=== PATIENT | male | born 1980 | race Caucasian/White ===

== ENCOUNTER → 2020-10-05 | Outpatient (CLI) | payer OTHER ==
[~2020-10-05] MED LIST: CONTRAST GIVEN. MC PRN; IOHEXOL 350 MG/ML 100 ML VIAL. IV ONE
--- NOTE | 2020-10-05 15:57 | RAD ---
EXAM: CT ANGIOGRAPHY OF THE CHEST WITH AND WITHOUT CONTRAST. HISTORY: Elevated d-dimer. TECHNIQUE: Computed tomographic angiography of the chest was performed before and after the intraveno us administration of iodinated contrast. 3-D maximum intensity projections were also performed. One o r more of the following individualized dose reduction techniques were utilized for this examination: 1. Automated exposure control. 2. Adjustment of the mA and/or kV according to patient size. 3. Use of iterative reconstruction technique. COMPARISON: None. FINDINGS: Images of the upper abdomen reveal no acute abnormality. Bone windows reveal no suspicious lesions. No pulmonary emboli are identified. There is no aortic dissection or aneurysm. There are no pathologically enlarged mediastinal or axillary lymph nodes. There is no pleural or betzaida cardial effusion. The heart is not enlarged. Lung windows reveal no infiltrates. IMPRESSION: 1. No pulmonary embolism. No infiltrates. Electronically signed by: Tobi Deshpande MD (10/05/2020 3:55 PM) [id number]
== END ==
LOC: RAD 15:02
PROVIDERS: ATTEND Family Medicine
DX: R79.1 Abnormal coagulation profile (principal)
CPT/HCPCS: 71275; Q9967